=== PATIENT | female | born 1985 | race African-American/Black ===

== ENCOUNTER 2018-01-21 21:35 | Emergency (ER) | payer MEDICAID, SELFPAY ==
[2018-01-21] MEDS ORDERED: Benzonatate 100 MG CAP ONE (22:09)
[2018-01-21 22:21] LABS: Pregnancy Test - Urine (BHCG) Negative (Negative)
[2018-01-21 22:22] LABS: Pregu Control Background? CLEAR/WHITE (CLR/WHITE); Pregu Control Bar Appear? YES (CONTROL BAR); Specific Gravity 1.024 (1.002-1.036)
--- NOTE | 2018-01-21 22:41 | RAD ---
CHEST TWO VIEWS: HISTORY: Cough for 1-1/2 weeks. COMPARISON: 10/28/2010 TECHNIQUE: PA and lateral views of the chest are obtained. FINDINGS: Two views of the chest demonstrate the lungs to be well aerated. No evidence of active intrathoracic disease is seen. No evidence of effusions, pneumonia, or pneumothorax is seen. IMPRESSION: Normal two views chest. POS: [facility]
== END 2018-01-21 23:01 | disposition home or self-care (01) ==
LOC: ERS 21:35
DX: J20.8 Acute bronchitis due to other specified organisms (principal); F32.9 Major depressive disorder, single episode, unspecified; Z79.899 Other long term (current) drug therapy
CPT/HCPCS: 71046; 81025; 87804; 94640; J7620

== ENCOUNTER 2023-01-06 10:33 | Emergency (ER) | payer OTHER, SELFPAY ==
[2023-01-06 11:29] LABS: #Monocytes 0.6 thou/uL (0.11-0.59); #Neutrophils 3.5 thou/uL (1.40-6.50); %Basophils 0.3 % (0.0-1.0); %Eosinophils 0.6 % (0.0-10.0); %Lymphocytes 36.6 % (21.0-51.0); %Monocytes 8.9 % (0.0-10.0); %Neutrophils 53.4 % (42.0-75.0); Hematocrit 43.5 % (36.0-47.0); Hemoglobin 14.6 g/dL (12.0-16.0); Mean Corpuscular HGB CONC 33.6 g/dL (32.0-36.0); Mean Corpuscular Hemoglobin 27.4 pg (27.0-31.0); Mean Corpuscular Volume 81.8 fl (78.0-98.0); Platelet Count 514 10x3/uL (130-400); RBC Distribution Width 13.8 % (11.5-14.5); Red Blood Cell (RBC) Count 5.32 mill/uL (4.20-5.40); White Blood Cell (WBC) Count 6.5 10x3/uL (4.8-10.8)
[2023-01-06 11:40] LABS: Bilirubin 1+ (Negative); Blood, Urine Negative (Negative); CAUTI Indications for Culture Pregnancy; Clarity Clear (Clear); Glucose, Urine (Dipstick) Normal (Negative); Ketone, Urine Greater than 150 mg/dL (Negative); Leukocyte 250 Leu/uL (Negative); Nitrite Negative (Negative); Protein, Urine (Dipstick) 100 mg/dL (Neg-Trace); RBC/HPF 0-3 HPF (0-3)
[2023-01-06 11:42] LABS: Bacteria/HPF 1+ HPF (None Seen)
[2023-01-06 11:45] LABS: Urine Culture Reflex Yes Yes
[2023-01-06 11:52] LABS: ALT (SGPT) 18 U/L (8-55); AST (SGOT) 19 U/L (5-34); Albumin 4.7 g/dL (3.5-5.0); Alkaline Phosphatase 92 U/L (40-110); Anion Gap 19 mmol/L (10-20); BUN (Urea Nitrogen) 16 mg/dL (7.0-18.7); Bilirubin, Total 0.8 mg/dL (0.2-1.2); Calc. Creatinine Clearance 0 mL/min (70-130); Calcium 9.8 mg/dL (7.8-10.44); Carbon Dioxide 20 mmol/L (22-29); Chloride 100 mmol/L (98-107); Estimated GFR 99; Globulin 3.3 g/dL (2.4-3.5); Glucose 82 mg/dL (70-105); Potassium 3.2 mmol/L (3.5-5.1); Sodium 136 mmol/L (136-145)
[2023-01-06] MEDS ORDERED: Ondansetron ODT 4 MG TAB ONE (11:53)
== END 2023-01-06 15:31 | disposition home or self-care (01) ==
LOC: ERS 10:33
DX: O21.0 Mild hyperemesis gravidarum (principal); Z3A.01 Less than 8 weeks gestation of pregnancy
CPT/HCPCS: 36415; 76856; 80053; 81001; 84702; 85025; 87086; 93976; 96360; Q0162